=== PATIENT | female | born 1945 | race Hispanic/Latino ===

== ENCOUNTER 2017-11-18 05:50 | Emergency (ER) | payer MEDICARE ==
[~2017-11-18] VITALS: Ht 157.5 cm; Wt 85.7 kg
[~2017-11-18 05:50] MED LIST: ALLOPURINOL; ALLOPURINOL100 MG PO; BP; GLIPIZIDE5 MG PO; HYDROCHLOROTH12.5 MG PO; LOSARTAN POTAS100 MG PO; METFORMIN HCL500 MG PO; OMEPRAZOLE20 MG PO; PRAVACHOL40 MG PO; TRAMADOL HCL-A1 EAC1; Z.0.ASPIRIN CHEW81 M; Z.0.DIOVAN80 MG
[2017-11-18] MEDS ORDERED: ACETAMINOPHEN 325 MG TAB PO ONE (06:00)
[2017-11-18] MEDS ORDERED: HYDRALAZINE HCL 25 MG TAB PO ONE (06:00)
== END 2017-11-18 06:54 | disposition home or self-care (01) ==
LOC: ER 05:50
DX: I10 Essential (primary) hypertension (principal); R51 Headache; E11.9 Type 2 diabetes mellitus without complications; E78.5 Hyperlipidemia, unspecified; M10.9 Gout, unspecified
CPT/HCPCS: 99282

== ENCOUNTER 2020-05-10 12:05 | Emergency (ER) | payer MEDICARE ==
[~2020-05-10] VITALS: Ht 154.9 cm; Wt 89.4 kg
[2020-05-10] MEDS ORDERED: ASPIRIN 81 MG CHEW TAB PO ONE (13:15)
--- OUTSIDE RECORDS SUMMARY | 2020-05-10 13:37 | XMS REPORT | Continuity of Care Document ---
Author Author [employer] Organization [employer] Address Unknown Phone Unavailable Care Team Providers Care Animal Ride Attendant Name Role Phone [employer] Unavailable Un available Problems Problem Status Onset Date Classification Date Reported Comments Source Abnormal electrocardiogram Act mckay Problem Geno Fonseca Claudication Active Problem 05/09/2017 Geno Fonseca Shortness of breath Active Problem 05/09/2017 Geno Fonseca Venous insufficiency Active Problem 05/09/2017 Geno Fonseca Gastro-esophageal reflux disease without esophagitis Active Diagnosis 05/09/2017 Geno Fonseca Varicose veins of bilateral lower extrem ities with other complications Active Prob libia 05/09/2017 Geno Fonseca Obesity Active Diagnosis 05/09/2017 Geno Fonseca Dizziness Active Problem 05/09/2017 Geno Fonseca Status post ablation of incompetent vein using laser Active Problem 05/09/2017 Geno Fonseca DM w/o complication type II Ac tive Problem Geno Fonseca Pure hypercholesterolemia Acti ve Problem Geno Fonseca Coronary atherosclerosis Active Problem 05/09/2017 Geno Fonseca 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 Active Prob libia 05/09/2017 Geno Fonseca OSWALDO positive Active Problem 10/12/2018 Jann Wetzel Polyarthritis Active Problem 10/12/2018 Jann Wetzel CAD (coronary artery disease) Active Problem Geno Fonseca Obesity Active Problem 02/01/2015 Geno Fonseca Claudication Active Problem 02/01/2015 Geno Fonseca Exercise-induced shortness of breath Active Problem Geno Fonseca Benign hypertensive heart disease Active Problem Geno Fonseca Chest Pain Active Problem 02/01/2015 Geno Fonseca Hypercholesteremia Active Problem 02/01/2015 Geno Fonseca GERD (gastroesophageal reflux disease) Active Problem Geno Estesyenialeksandr Abnormal ECG Active Problem 02/01/2015 Geno Estesava Diabetes Active Problem 02/01/2015 Geno Estesyenialeksandr Dizziness Active Diagnosis 02/01/2015 Geno Estesyenialeksandr Medications Medication Details Route Status Patient Instructions Ordering Provider Order Date Source Linzess 1 capsule Orally Active 145 MCG [facility] Estes[facility] Allopurinol 1 tablet Orally Active 100 mg Orally Once a da y [facility] Catie Fonseca Omeprazole 1 capsule Orally Active 40 mg Orally Twice a da y [facility] Franklynaleksandr Atorvastatin Calcium 1 tablet Orally Active 10 mg Orally Once a day [facility] [place] Metoprolol Tartrate 1 tablet Orally Active 25 MG Orally Once a day [facility] [place] GlipiZIDE 1/2 half tablet Orally Active 5 MG Orally Once a day [facility] [place] Januvia 1 tablet Orally Active 25 MG Orally twice a da y (bid) [facility] [place] BusPIRone HCl 1/2 half tablet Orally Active 15 MG Orally twice a day (bid) [facility] Catie Estesaleksandr Losartan Potassium 1 tablet Orally Active 100 mg Orally Once a day [facility] GlipiZIDE 1 tablet Orally Active 5 MG Orally [facility] a day [facility] Vitamin D (Ergocalciferol) 1 c apsule Orally Active 02717 UNIT Orally once a week Nishi Wetzel Aspirin 1 tablet Orally Active 81 MG Orally [facility] a day [facility] Catie Estesaleksandr Omeprazole 1 capsule Orally Active 20 mg Orally Twice a da y [facility] Catie Fonseca Allergies, Adverse Reactions, Alerts Substance Category Reaction Severity Reaction type Status Date Reported Comments Source N.K.D.A. Adverse Reaction Info Not Available Adverse Reaction Active 09/20/2016 Geno Estesyenialeksandr Immunizations No Data Provided for This Section Results No Data Provided for This Section Pathology Reports No Data Provided for This Section Diagnostic Reports No Data Provided for This Section Consultation Notes No Data Provided for This Section Discharge Summaries No Data Provided for This Section History and Physicals No Data Provided for This Section Vital Signs Vital Sign Value Date Comments Source Weight 207 09/20/2016 Mohamed O Jeroudi Temperature Oral (F) 97.1 F 09/20/2016 Mohamed O Jeroudi Heart Rate 70 09/20/2016 Mohamed O Jeroudi Diastolic (mm Hg) 80 09/20/2016 Mohamed O Jeroudi Systolic (mm Hg) 130 09/20/2016 Mohamed O Jeroudi Weight 206 08/14/2016 Mohamed O Jeroudi Temperature Oral (F) 97.6 F 08/14/2016 Mohamed O Jeroudi Heart Rate 70 08/14/2016 Mohamed O Jeroudi Diastolic (mm Hg) 80 08/14/2016 Mohamed O Jeroudi Systolic (mm Hg) 130 08/14/2016 Mohamed O Jeroudi Weight 208 07/26/2016 Mohamed O Jeroudi Temperature Oral (F) 97.6 F 07/26/2016 Mohamed O Jeroudi Heart Rate 70 07/26/2016 Mohamed O Jeroudi Diastolic (mm Hg) 82 07/26/2016 Mohamed O Jeroudi Systolic (mm Hg) 128 07/26/2016 Mohamed O Jeroudi Weight 208 06/22/2016 Mohamed O Jeroudi Temperature Oral (F) 97.2 F 06/22/2016 Mohamed O Jeroudi Heart Rate 70 06/22/2016 Mohamed O Jeroudi Diastolic (mm Hg) 70 06/22/2016 Mohamed O Jeroudi Systolic (mm Hg) 132 06/22/2016 Mohamed O Jeroudi Weight 208 04/20/2016 Mohamed O Jeroudi Temperature Oral (F) 97.0 F 04/20/2016 Mohamed O Jeroudi Heart Rate 70 04/20/2016 Mohamed O Jeroudi Diastolic (mm Hg) 80 04/20/2016 Mohamed O Jeroudi Systolic (mm Hg) 128 04/20/2016 Mohamed O Jeroudi Weight 211 01/18/2016 Mohamed O Jeroudi Temperature Oral (F) 96.5 F 01/18/2016 Mohamed O Jeroudi Heart Rate 71 01/18/2016 Mohamed O Jeroudi Diastolic (mm Hg) 80 01/18/2016 Mohamed O Jeroudi Systolic (mm Hg) 132 01/18/2016 Mohamed O Jeroudi Weight 210 11/30/2014 Mohamed O Jeroudi Temperature Oral (F) 97.0 F 11/30/2014 Geno Fonseca Heart Rate 74 11/30/2014 Geno Fonseca Diastolic (mm Hg) 80 11/30/2014 Geno Fonseca Systolic (mm Hg) 130 11/30/2014 Geno Fonseca Encounters Location Location Details Encounter Type Encounter Number Reason For Visit Attending Provider ADM Date DC Date Status Source MD AMANUEL Rojas Unknown [id number] 12/01/19 15 11/30/2014 MD AMANUEL Cabral Unknown [id number] 12/08/19 15 12/07/2014 MD AMANUEL Cabral Unknown [id number] 12/08/19 15 12/07/2014 Geno Fonseca Procedures No Data Provided for This Section Assessment and Plan No Data Provided for This Section Plan of Care No Data Provided for This Section Social History Social History Date Source Social History ElementQualifiersDate Rep orted Smoking . Status Never Smoker December 21, 2014 Alcohol Use Yes. December 21, 2014 Alcohol Screening: . Did you have a drink containing alco hol in the past year?: Yes, How often did you have a drink containing alcohol in the past year?: Monthly or less (1 point), How many drinks did you have on a typical day when you were drinking in the past year?: 1 or 2 (0 points), How often did you have six or more drinks on one occasion in the past year?: Never (0 points), Points: 1 December 21, 2014 Marital Status: . December 21, 2014 Do you drink alcohol? Yes. December 21, 2014 Occupation: . House December 21, 2014 12/21/2014 Geno Fonseca Family History No Data Provided for This Section Advance Directives No Data Provided for This Section Functional Status No Data Provided for This Section
--- OUTSIDE RECORDS SUMMARY | 2020-05-10 13:37 | XMS REPORT | Continuity of Care Document ---
Author Author [facility] t Organization [facility] Address [address] [place] [address] Phone Unavailable Care Team Providers Care Corporate Legal Assistant Name Role Phone JOON SEARS, CINDI PCP SARA ANTONIO M.D. Attphys Unavailable Payers Payer Name Policy Type Policy Number Effective Date Expiration Date Mitzy boss [facility] Medicare Advantage [id number] 2012 00:00:00 [facility] Problems Condition Name Condition Details Condition Category Status Onset Date Resolution Date Last Treatment Date Treating Clinician Comments Source History of arthritis History of arthritis Problem HL7.CCDAR2 Resolved [facility] History of Depressive disorder History of Depressive disorde r Problem HL7.CCDAR2 Resolved [facility] History of diabetes mellitus History of diabetes mellitus Proble m HL7.CCDAR2 Resolved [facility] History of gastritis History of gastritis Problem HL7.CCDAR2 Resolved [facility] History of hypertension History of hypertension Problem HL7.CCDAR2 Res olved [facility] Chronic GERD Chronic GERD Problem HL7.CCDAR2 Active [facility] Abnormal electrocardiogram Abn ormal electrocardiogram Active Problem 05/09/2017 Geno Fonseca Problem Active 2017-05-09 02:45:01 [facility] Claudication Brooklynn dication Active Problem 05/09/2017 Mohamed O Franklynoudi Problem Active 2017-05-09 02:45:01 [facility] Shortness of breath Shor tness of breath Active Problem 05/09/2017 Mohbenitez Epsteindi Problem Active 2017-05-09 02:45:01 [facility] Venous insufficiency Veno us insufficiency Active Problem 05/09/2017 Mohbenitez Fonseca Problem Active 2017-05-09 02:45:01 [facility] Gastro-esophageal reflux disease without esophagitis Gastro-esophageal reflux disease without esophagitis Active Diagnosis 05/09/2017 Geno Fonseca Diagnosis Active 2017-05-09 02:45:0 1 [facility] Varicose veins of bilateral lower extremities with oth er complications Varicose veins of bilateral lower extremities with other complications Active Problem 05/09/2017 Geno Epsteindi Problem Active 2017-05-09 02:45:01 [facility] Obesity Obes ity Active Diagnosis 05/09/2017 Geno Estesoudi Diagnosis Active 2017-05-09 02:45:01 [facility] Dizziness Dizz iness Active Problem 05/09/2017 Mohbenitez Estesoudi Problem Active 2017-05-09 02:45:01 [facility] Status post ablation of incompetent vein using laser Status post ablation of incompetent vein using laser Active Problem 05/09/2017 Geno Fonseca Problem Active 2017-05-09 02:45:01 [facility] DM w/o complication type II DM w/o complication type II Active Problem 05/09/2017 Geno Fonseca Problem Active 2017-05-09 02:45:01 [facility] Pure hypercholesterolemia Pure hypercholesterolemia Active Problem 05/09/2017 Geno Fonseca Problem Active 26-04-30 02:45:01 [facility] Coronary atherosclerosis Aaron nary atherosclerosis Active Problem 05/09/2017 Geno Fonseca Problem Active 26-04-30 02:45:01 [facility] Benign hypertensive heart disease without congestive h eart failure Benign hypertensive heart disease without congestive heart failure Active Problem 05/09/2017 Geno Fonseca Problem Active 26-04-30 02:45:01 [facility] OSWALDO positive OSWALDO positive Active Problem 10/12/2018 Jann Wetzel Problem Active 2018-10-12 03:46:15 [facility] Polyarthritis Poly arthritis Active Problem 10/12/2018 Jann Wetzel Problem Active 2018-10-12 03:46:15 [facility] CAD (coronary artery disease) CAD (coronary artery disease) Active Problem 02/01/2015 Mohbenitez Estesoudi Problem Active 2015-02-01 02:48:35 [facility] Obesity Obes ity Active Problem 02/01/2015 Mohamed Catie Estesoudi Problem Active 2015-02-01 02:48:35 [facility] [place] Claudication Brooklynn dication Active Problem 02/01/2015 Mohamed Catie Estesoudi Problem Active 2015-02-01 02:48:35 [facility] Exercise-induced shortness of breath Exercise-induced shortness of breath Active Problem 02/01/2015 Geno Fonseca Problem Ac tive 2015-02-01 02:48:35 [place] Benign hypertensive heart disease Benign hypertensive heart disease Active Problem 02/01/2015 Geno Fonseca Problem Active 2015-02-01 02:48:35 Susana Estrada Chest Pain Ches t Pain Active Problem 02/01/2015 Geno Fonseca Problem Active 2015-02-01 02:48:35 [facility] Sean Hypercholesteremia Hype rcholesteremia Active Problem 02/01/2015 Geno Fonseca Problem Active 2015-02-01 02:48:35 Susana Estrada GERD (gastroesophageal reflux disease) GERD (gastroesophageal reflux disease) Active Problem 02/01/2015 Geno Fonseca Problem Active 2015-02-01 02:48:35 Susana Estrada Abnormal ECG Abno rmal ECG Active Problem 02/01/2015 Geno Fonseca Problem Active 2015-02-01 02:48:35 Susana Estrada Diabetes Diab etes Active Problem 02/01/2015 Geno Fonseca Problem Active 2015-02-01 02:48:35 [place] Le[place]ann Dizziness Dizz iness Active Diagnosis 02/01/2015 Geno Fonseca Diagnosis Active 2015-02-01 02:48:35 Susana Estrada Allergies, Adverse Reactions, Alerts Allergy Name Allergy Type Status Severity Reaction(s) Onset Date Inacti ve Date Treating Clinician Comments Source N.K.D.A. N.K.D.A. Active Info Not Available 2016-09-20 00:00:00 Susana Sean Family History Family Member Diagnosis Comments Start Date Stop Date Source Unknown Family Member Family history of cardiac disorder Family Histo ry [facility] Social History Social Habit Start Date Stop Date Quantity Comments Source Smoking 2014-12-21 00:00:00 2014-12-21 00:00:00 Susana Estrdaa Smoking Status Start Date Stop Date Source Never smoker [facility] Medications Ordered Medication Name Filled Medication Name Start Date Stop Da te Current Medication? Ordering Clinician Indication Dosage Frequency Signature (SIG) Comments Components Source Vitamin D (Ergocalciferol) 2018-10-12 03:46:15 Yes Derrick Singersaf 1 capsule [facility] [place] Linzess 2017-05-09 02:45:01 Yes Chiqui Epsteindi 1 c apsule [facility] Allopurinol 2017-05-09 02:45:01 Yes Chiqui Estesoudi 1 tablet [facility] Omeprazole 2017-05-09 02:45:01 Yes Chiqui Estesoudi 1 capsule [facility] Atorvastatin Calcium 2017-05-09 02:45:01 Yes Lesad Jeroudi 1 tablet [facility] Metoprolol Tartrate 2017-05-09 02:45:01 Yes Lesad Jeroudi 1 tablet [facility] GlipiZIDE 2017-05-09 02:45:01 Yes Chiqui Jeroudi 1 /2 half tablet [facility] Januvia 2017-05-09 02:45:01 Yes Chiqui Estesoudi 1 t ablet [facility] BusPIRone HCl 2017-05-09 02:45:01 Yes Chiqui Jeroudi 1/2 half tablet [facility] Losartan Potassium 2017-05-09 02:45:01 Yes Chiqui Estesoudi 1 tablet [facility] GlipiZIDE 2017-04-21 02:46:21 Yes Geno Estesoudi 1 tablet [facility] Aspirin 2015-02-01 02:48:35 Yes Mauriceamed Jeroudi 1 tablet [facility] Omeprazole 2015-02-01 02:48:35 Yes Geno Estesoudi 1 capsule [facility] Allopurinol 100 Mg Tablet Allopurinol 100 Mg Tablet Yes [address] [facility] Glipizide 5 Mg Tablet Glipizide 5 Mg Tablet Yes 5 Twice A Day [facility] Hydrochlorothiazide 12.5 Mg Tablet Hydrochlorothiazide 12.5 Mg Tablet Yes 12.5 Daily [facility] Losartan Potassium 100 Mg Tablet Losartan Potassium 100 Mg Tablet Yes 100 Daily [facility] Metformin Hcl 500 Mg Tablet Metformin Hcl 500 Mg Tablet Yes [address] [facility] Omeprazole 20 Mg Capsule. Omeprazole 20 Mg Capsule. Yes 20 Daily [facility] Pravastatin Sodium (Pravachol) 40 Mg Tablet Pravastati n Sodium (Pravachol) 40 Mg Tablet Yes [address] [facility] Januvia 50 MG Oral Tablet Januvia 50 MG Oral Tablet Yes R.N. [facility] Losartan Potassium TABS Losartan Potassium TABS Yes R.N. [facility] Atorvastatin Calcium TABS Atorvastatin Calcium TABS Yes R.N. [facility] Metoprolol-Hydrochlorothiazide TABS Metoprolol-Hydrochlorothiazide TA BS Yes [facility] Baclofen TABS Baclofen TABS Yes [facility] Omeprazole TBEC Omeprazole TBEC Yes [facility] BusPIRone HCl TABS BusPIRone HCl TABS Yes [facility] AmLODIPine Besylate TABS AmLODIPine Besylate TABS Yes [facility] GlipiZIDE TABS GlipiZIDE TABS Yes [facility] VESIcare TABS VESIcare TABS Yes [facility] Tylenol with Codeine #3 TABS Tylenol with Codeine #3 TABS Yes [facility] Allopurinol (Zyloprim) 100 Mg Tablet, Allopurinol (Zyloprim) 100 Mg Tablet, 2013-02-20 00:00:00 No [facility] Aspirin (Aspirin Chew) 81 Mg Chew, Aspirin (Aspirin Chew) 81 Mg Chew, 2013-02-20 00:00:00 [facility] Bp , Bp , 2013-02-20 00:00:00 [facility] Tramadol Hcl/Acetaminophen (Tramadol Hcl-Apap 37.5-325 Tab) 1 Each Tablet, Tramadol Hcl/Acetaminophen (Tramadol Hcl-Apap 37.5-325 Tab) 1 Each Tablet, 2013-02-20 00:00:00 [facility] Valsartan (Diovan) 80 Mg Tablet, Valsartan (Diovan) 80 Mg Tablet , 2013-02-20 00:00:00 [facility] Vital Signs Vital Name Observation Time Observation Value Comments Source BP Systolic 2018-04-26 09:02:00 146 mm[Hg] [facility] BP Diastolic 2018-04-26 09:02:00 81 mm[Hg] [facility] Height 2018-04-26 09:02:00 62 [in_us] [facility] Weight 2018-04-26 09:02:00 203.0625 [lb_av] [facility] Body Mass Index Calculated 2018-04-26 09:02:00 37.14 kg/m2 [facility] Heart Rate 2018-04-26 09:02:00 69 /min [facility] Weight 2016-09-20 19:00:00 [facility] [place] Temperature Oral (F) 2016-09-20 19:00:00 97.1 F [facility] Heart Rate 2016-09-20 19:00:00 [facility] Diastolic (mm Hg) 2016-09-20 19:00:00 [facility] [place] Systolic (mm Hg) 2016-09-20 19:00:00 [facility] [facility] Sean Weight 2016-08-14 19:30:00 [facility] Temperature Oral (F) 2016-08-14 19:30:00 97.6 F [facility] [place] Heart Rate 2016-08-14 19:30:00 [facility] Diastolic (mm Hg) 2016-08-14 19:30:00 Mem orial Sean Systolic (mm Hg) 2016-08-14 19:30:00 [place] rial Sean Weight 2016-07-26 16:30:00 [facility] [place] Temperature Oral (F) 2016-07-26 16:30:00 97.6 F [facility] [place] Heart Rate 2016-07-26 16:30:00 [facility] [place] Diastolic (mm Hg) 2016-07-26 16:30:00 Mem orial Sean Systolic (mm Hg) 2016-07-26 16:30:00 [place] [facility] [place] Weight 2016-06-22 18:30:00 [facility] Temperature Oral (F) 2016-06-22 18:30:00 97.2 F [facility] Heart Rate 2016-06-22 18:30:00 [facility] Diastolic (mm Hg) 2016-06-22 18:30:00 Mem [facility] [place] Systolic (mm Hg) 2016-06-22 18:30:00 [place] rial Sean Weight 2016-04-20 19:00:00 [facility] [place] Temperature Oral (F) 2016-04-20 19:00:00 97.0 F [facility] [place] Heart Rate 2016-04-20 19:00:00 [facility] [place] Diastolic (mm Hg) 2016-04-20 19:00:00 Mem [facility] [place] Systolic (mm Hg) 2016-04-20 19:00:00 [place] rial [place] Weight 2016-01-18 18:00:00 [facility] [place] Temperature Oral (F) 2016-01-18 18:00:00 96.5 F [facility] [place] Heart Rate 2016-01-18 18:00:00 [facility] [place] Diastolic (mm Hg) 2016-01-18 18:00:00 Mem orial Sean Systolic (mm Hg) 2016-01-18 18:00:00 [place] rial Sean Weight 2014-11-30 18:30:00 [facility] [place] Temperature Oral (F) 2014-11-30 18:30:00 97.0 F [facility] Heart Rate 2014-11-30 18:30:00 [facility] Diastolic (mm Hg) 2014-11-30 18:30:00 Mem orial Sean Systolic (mm Hg) 2014-11-30 18:30:00 [place] Sean Procedures This patient has no known procedures. Encounters Start Date/Time End Date/Time Encounter Type [facility] Encounter ID Source 2018-10-11 10:52:00 2018-10-11 10:52:00 Outpatient Seth Wetzel MD [place] [id number] Jann Wetzel MD 2018-04-26 08:30:00 2018-04-26 08:30:00 Appointment; SARA ANTONIO M.D. BYRD, MICHAEL, M.D. [facility] Otorhinolaryngology [place] [id number] [facility] 2017-11-18 05:50:00 2017-11-18 05:50:00 Registered Emergency Room [facility] [id number] [facility] 2016-09-20 14:00:00 2016-09-20 14:00:00 Outpatient Geno VITAL [id number] [employer] 2016-08-14 14:30:00 2016-08-14 14:30:00 Outpatient Geno Fonseca MD [place] [id number] [employer] 2016-07-26 11:30:00 2016-07-26 11:30:00 Outpatient Geno Fonseca MD [place] [id number] [employer] 2016-06-22 13:30:00 2016-06-22 13:30:00 Outpatient Geno Fonseca MD [place] [id number] [employer] 2016-04-20 14:00:00 2016-04-20 14:00:00 Outpatient Geno Fonseca MD [place] [id number] [employer] 2016-01-18 13:00:00 2016-01-18 13:00:00 Outpatient Geno Fonseca MD [place] [id number] [employer] 2014-12-07 14:26:00 2014-12-07 14:26:00 [place] [id number] [employer] 2014-11-30 13:30:00 2014-11-30 13:30:00 Outpatient Geno [place]sec[place] [id number] [employer] Results Test Description Test Time Test Comments Results Result Comments Source Tobacco Use Screening 2018-04-26 08:30:00 Test Item Completed (test code = Completed) DONE [facility]
[2020-05-10 13:51] LABS: BASOPHILS % 0.4 % (0.0-1.0); EOSINOPHILS # (AUTO) 0.2 (0.0-0.4); HEMATOCRIT 38.6 % (34.2-44.1); LYMPHOCYTES # (AUTO) 2.6 (1.0-3.2); LYMPHOCYTES % 32.3 % (18.0-39.1); MEAN CORPUSCULAR HEMOGLOBIN 28.5 pg (28-32); MEAN CORPUSCULAR HGB CONC 31.1 g/dL (31-35); MEAN CORPUSCULAR VOLUME 91.7 fL (81-99); MONOCYTES # (AUTO) 0.7 (0.2-0.8); MONOCYTES % 8.5 % (4.4-11.3); NEUTROPHILS # (AUTO) 4.5 (2.1-6.9); NEUTROPHILS % 56.6 % (38.7-80.0); PLATELET COUNT 179 x10e3/uL (140-360); RED BLOOD COUNT 4.21 x10e6/uL (3.6-5.1)
[2020-05-10 14:05] LABS: BILIRUBIN,URINE NEGATIVE (NEGATIVE); CLARITY,URINE CLEAR (CLEAR); COLOR,URINE YELLOW (YELLOW); KETONES,URINE NEGATIVE (NEGATIVE); LEUKOCYTE ESTERASE ,URINE NEGATIVE (NEGATIVE); NITRITE,URINE NEGATIVE (NEGATIVE); PROTEIN,URINE DIPSTICK TRACE (NEGATIVE); URINE UROBILINOGEN 0.2 mg/dL (0.2 - 1)
[2020-05-10 14:17] LABS: BACTERIA,URINE RARE /HPF; EPITHELIAL CELLS,URINE MODERATE /LPF
--- NOTE | 2020-05-10 14:36 | NUR ---
SPOKE WITH BARRY IN LAB REGARDING ETA OF STUDENT LOAN COUNSELOR TO REDRAW PT FOR GREEN (PER ER MANGER) AND BARRY KEEPS STATING "THERE IS ONLY ONE STUDENT LOAN COUNSELOR" HE THEN STATED SHE HAS OUTPT TESTING THEN WILL COME DO ER.
--- NOTE | 2020-05-10 15:44 | NUR ---
PT'S SON CALLED ER AND STATED PT TOLD HIM SHE WAS UPSET, "THAT WE HADN'T FED HER." MD/RN X 2 TO ROOM TO SPEAK WITH PT. PT STATES SHE DID STATE THAT TO HER SON, THEN PT TOLD MD SHE WAS NAUSEATED AND HAD PAIN AND DIDNT WANT TO EAT. EXPLAINED TO PT AGAIN OF PLAN OF CARE AND NPO STATUS D/T IMPORTANCE OF CT TEST THAT IS PENDING. PT STATES UNDERSTANDING OF ALL ABOVE INFORMATION
[2020-05-10 16:17] LABS: ALBUMIN 4.2 g/dL (3.5-5.0); ALBUMIN/GLOBULIN RATIO 1.2 (0.8-2.0); ANION GAP 18.4 mmol/L (8-16); CALCIUM 9.2 mg/dL (8.4-10.2); CREATINE KINASE MB 2.2 ng/mL (0-5.0); CREATININE, SERUM 1.34 mg/dL (0.57-1.11); POTASSIUM 4.4 mmol/L (3.5-5.1)
[2020-05-10] MEDS ORDERED: SODIUM CHLORIDE 0.9% 1000ML 1,000 ML IV STA (16:44)
--- NOTE | 2020-05-10 18:28 | Diagnostic Imaging Report ---
EXAM: CT Abdomen and Pelvis WITH contrast INDICATION: ABD PAIN COMPARISON: None. TECHNIQUE: Abdomen and pelvis were scanned utilizing a multidetector helical scanner from the lung base to the pubic symphysis after administration of IV contrast. Coronal and sagittal reformations were obtained. Dose modulation, iterative reconstruction, and/or weight based adjustment of the mA/kV was utilized to reduce the radiation dose to as low as reasonably achievable. Routine protocol was performed. Scan was performed when during portal venous phase. IV CONTRAST: 150 mL of Omnipaque 300 ORAL CONTRAST: Water COMPLICATIONS: None RADIATION DOSE: Total DLP: dlp mGy-cm Estimated effective dose: (DLP x 0.015 x size factor) mSv CTDIvol has been reviewed. It is below the limits set by the Radiation Protocol Committee (RPC). FINDINGS: LINES and TUBES: None. LOWER THORAX: There is bibasilar atelectasis. There are faint groundglass opacities noted in the lung bases could be inflammatory. HEPATOBILIARY: The liver is diffuse hypodense compared to the spleen, consistent with diffuse hepatic diffuse hepatic steatosis. No focal hepatic lesions. No biliary ductal dilation. GALLBLADDER: The gallbladder is not seen.. SPLEEN: No splenomegaly. No focal splenic lesion. PANCREAS: No focal masses or ductal dilatation. ADRENALS: No adrenal nodules KIDNEYS/URETERS: Kidneys enhance symmetrically. No hydronephrosis. There is a 1.2 x 1.5 x 1.1 cm hypoenhancing lesion in the superior pole of right kidney (series 2, image 22). There is a 1 mm nonobstructive calculus in upper pole of the left kidney (series 301, image 68) GI TRACT: There is mild wall thickening of the transverse colon, descending colon and sigmoid colon. There are diverticula within the colon without evidence of diverticulitis. PELVIC ORGANS/BLADDER: The bladder is unremarkable. LYMPH NODES: No lymphadenopathy. 0.7 cm portacaval nodes (series 2, image 22), nonspecific. VESSELS: No aortic aneurysm or dissection. PERITONEUM / RETROPERITONEUM: No free air or fluid. BONES: There are degenerative changes in the spine. SOFT TISSUES: Unremarkable. IMPRESSION: 1. Faint groundglass opacities in the lung bases are likely due to atypical/viral pneumonia. 2. Mild wall thickening of the transverse colon, descending colon and sigmoid colon likely infectious or inflammatory. 3. Hypoenhancing 1.5 cm lesion in the superior pole of right kidney is incompletely characterized on this exam. Recommend further evaluation with CT or MR renal mass protocol. 4. A 1 mm nonobstructive calculus in upper pole of the left kidney. Signed by: Vernon Be MD on 05/10/2020 6:25 PM
--- NOTE | 2020-05-10 18:29 | Emergency Department Note ---
History of Present Illnes History of Present Illness Chief Complaint: Abdominal Complaints History of Present Illness This is a 75 year old female ABDOMEN FEELS HOT AROUND UMBILICAL AREA, RADIATES UP TO EPIGASTRIC AREA. DENIES ANY N/V. DIARRHEA X 4. "I FEEL LIKE I HAVE GASTRITIS". Historian: Patient Arrival Mode: Car Additional Treatment PROFESSOR OF BIOCHEMISTRY: NONE Ply Bander Required: No Onset (how long ago): day(s) (1) Location: LOWER ABD Quality: DISCOMFORT Radiation: Reports non-radiation Severity: mild Timing of current episode: intermittent Chronicity: new Context: Denies recent illness Relieving factors: none Exacerbating factors: none Associated symptoms: Reports denies other symptoms Treatments prior to arrival: none Past Medical/Family History Physician Review I have reviewed the patient's past medical and family history. Any updates have been documented here. Past Medical History Recent Fever: No Clinical Suspicion of Infectio: No New/Unexplained Change in Ment: No Past Medical History: Hyperlipedemia Other Medical History: HIGH CHOLESTEROL, GOUT Other Surgery: C SECTION Social History Smoking Cessation: Never Smoker Counseling Performed: No Alcohol Use: None Any Illegal Drug Use: No Physically hurt or threatened: No Other Last Tetanus: UNKNOWN Any Pre-Existing Lines (PICC,: No Review of Systems Review of Systems Constitutional: Reports no symptoms EENTM: Reports no symptoms Cardiovascular: Reports no symptoms Respiratory: Reports no symptoms Gastrointestinal: Reports as per HPI Genitourinary: Reports no symptoms Musculoskeletal: Reports no symptoms Integumentary: Reports no symptoms Neurological: Reports no symptoms Psychological: Reports no symptoms Endocrine: Reports no symptoms Hematological/Lymphatic: Reports no symptoms Physical Exam Related Data Allergies: Coded Allergies: No Known Allergies (Unverified , 05/06/11) Triage Vital Signs Vital Signs Date Time Temp Pulse Resp B/P (MAP) Pulse Ox O2 Delivery O2 Flow Rate FiO2 05/10/20 13:07 97.9 77 18 180/84 97 Room Air Vital signs reviewed: Yes Physical Exam CONSTITUTIONAL Constitutional: Present well-developed, Present well-nourished, Present obese HENT HENT: Present normocephalic, Present atraumatic, Present oropharynx clear/moist, Present nose normal HENT L/R: Present left ext ear normal, Present right ext ear normal EYES Eyes: Reports PERRL, Reports conjunctivae normal NECK Neck: Present ROM normal PULMONARY Pulmonary: Present effort normal, Present breath sounds normal CARDIOVASCULAR Cardiovascular: Present regular rhythm, Present heart sounds normal, Present capillary refill normal, Present normal rate GASTROINTESTINAL Abdominal: Present soft, Present bowel sounds normal, Present tender (MILD SUPRAPUBIC AND LLQ WITHOUT R/G); Absent guarding, Absent rebound GENITOURINARY Genitourinary: Present exam deferred SKIN Skin: Present warm, Present dry MUSCULOSKELETAL Musculoskeletal: Present ROM normal NEUROLOGICAL Neurological: Present alert, Present oriented x 3, Present no gross motor or sensory deficits PSYCHOLOGICAL Psychological: Present mood/affect normal, Present judgement normal Results Laboratory Result Diagram: 05/10/20 1310 05/10/20 1534 Laboratory Laboratory Tests Test 05/10/20 15:34 05/10/20 13:10 Sodium Level 138 mmol/L (136-145) Potassium Level 4.4 mmol/L (3.5-5.1) Chloride Level 105 mmol/L (98-107) Carbon Dioxide Level 19 mmol/L (22-29) Anion Gap 18.4 mmol/L (8-16) Blood Urea Nitrogen 17 mg/dL (7-26) Creatinine 1.34 mg/dL (0.57-1.11) Estimat Glomerular Filtration Rate 39 ML/MIN (60-) BUN/Creatinine Ratio 13 (6-25) Glucose Level 111 mg/dL (74-118) Calcium Level 9.2 mg/dL (8.4-10.2) Total Bilirubin 0.6 mg/dL (0.2-1.2) Aspartate Amino Transf (AST/SGOT) 33 IU/L (5-34) Alanine Aminotransferase (ALT/SGPT) 27 IU/L (0-55) Alkaline Phosphatase 50 IU/L (40-150) Creatine Kinase 142 IU/L (29-168) Creatine Kinase MB 2.20 ng/mL (0-5.0) Troponin I 0.023 ng/mL (0-0.300) Total Protein 7.8 g/dL (6.5-8.1) Albumin 4.2 g/dL (3.5-5.0) Globulin 3.6 g/dL (2.3-3.5) Albumin/Globulin Ratio 1.2 (0.8-2.0) White Blood Count 8.02 x10e3/uL (4.8-10.8) Red Blood Count 4.21 x10e6/uL (3.6-5.1) Hemoglobin 12.0 g/dL (12.0-16.0) Hematocrit 38.6 % (34.2-44.1) Mean Corpuscular Volume 91.7 fL (81-99) Mean Corpuscular Hemoglobin 28.5 pg (28-32) Mean Corpuscular Hemoglobin Concent 31.1 g/dL (31-35) Red Cell Distribution Width 14.0 % (11.7-14.4) Platelet Count 179 x10e3/uL (140-360) Neutrophils (%) (Auto) 56.6 % (38.7-80.0) Lymphocytes (%) (Auto) 32.3 % (18.0-39.1) Monocytes (%) (Auto) 8.5 % (4.4-11.3) Eosinophils (%) (Auto) 2.0 % (0.0-6.0) Basophils (%) (Auto) 0.4 % (0.0-1.0) Neutrophils # (Auto) 4.5 (2.1-6.9) Lymphocytes # (Auto) 2.6 (1.0-3.2) Monocytes # (Auto) 0.7 (0.2-0.8) Eosinophils # (Auto) 0.2 (0.0-0.4) Basophils # (Auto) 0.0 (0.0-0.1) Absolute Immature Granulocyte (auto 0.02 x10e3/uL (0-0.1) Urine Color Yellow (YELLOW) Urine Clarity Clear (CLEAR) Urine pH 5.5 (5 - 7) Urine Specific [place] <=1.005 (1.010-1.025) Urine Protein Trace (NEGATIVE) Urine Glucose (UA) Negative (NEGATIVE) Urine Ketones Negative (NEGATIVE) Urine Blood Negative (NEGATIVE) Urine Nitrite Negative (NEGATIVE) Urine Bilirubin Negative (NEGATIVE) Urine Urobilinogen 0.2 mg/dL (0.2 - 1) Urine Leukocyte Esterase Negative (NEGATIVE) Urine RBC None /HPF (0-5) Urine WBC None /HPF (0-5) Urine Epithelial Cells Moderate /LPF (NONE) Urine Bacteria Rare /HPF (NONE) Lab results reviewed: Yes Imaging Imaging results reviewed: Yes Imaging Comments DR MARTINEZ TO F/U CT Procedures 12 Lead ECG Interpretation ECG Interpretation : ECG: ECG 1 Date: May 10, 2020 Time: 13:10 Rhythm: sinus rhythm Conduction: right bundle branch block (AND LAFB) ST segments normal: Yes T waves normal: Yes Other findings: LVH Clinical Impression: abnormal ECG Assessment & Plan Medical Decision Making MDM CBC, CHEM, UA/CX, CARDIACS, ECG, CT ABD/PELVIS - EVAL FOR UTI, KIDNEY STONE, DIVERTICULITIS, BOWEL OBSTRUCTION, NSTEMI Reassessment Reassessment CT NOTED. DC HOME, PUSH PO FLUIDS, ADVANCE TO BLAND DIABETIC DIET, ZOFRAN, BENTYL, F/U PCP AND GI and , SELF-QUARANTINE, PRONING, TYLENOL DIRECTED, GET TESTED FOR COVID. RTED PRN Assessment & Plan Final Impression: (1) Abdominal pain (2) Gastroenteritis (3) Renal mass (4) COVID-19 Depart Disposition: HOME, SELF-CARE Last Vital Signs Date Time Temp Pulse Resp B/P (MAP) Pulse Ox O2 Delivery O2 Flow Rate FiO2 05/10/20 15:47 67 16 96 Room Air 05/10/20 13:07 97.9 Home Meds Reported Medications Losartan Potassium (LOSARTAN POTASSIUM) 100 Mg Tablet, 100 MG PO DAILY 02/20/13 Allopurinol (ALLOPURINOL) 100 Mg Tablet, 100 MG PO BID 02/20/13 Omeprazole (OMEPRAZOLE) 20 Mg Capsule.dr, 20 MG PO DAILY 02/20/13 Hydrochlorothiazide (HYDROCHLOROTHIAZIDE) 12.5 Mg Tablet, 12.5 MG PO DAILY 02/20/13 Pravastatin Sodium (PRAVACHOL) 40 Mg Tablet, 40 MG PO DAILY 02/20/13 Metformin Hcl (METFORMIN HCL) 500 Mg Tablet, 500 MG PO BID 02/20/13 Glipizide (GLIPIZIDE) 5 Mg Tablet, 5 MG PO BID 02/20/13 Medications in the ED Aspirin 81 mg PRN ONCE PO ; Start 05/10/20 at 13:15; Stop 05/10/20 at 13:18; Status DC Sodium Chloride 1,000 ml @ 0 mls/hr Q0M STAT IV Last administered on 05/10/20at 17:06; Admin Dose 1,000 MLS/HR; Start 05/10/20 at 16:44; Stop 05/10/20 at 16:45; Status DC MEGAN RODRIGUEZ MD May 10, 2020 18:29
[2020-05-10] MEDS ORDERED: IOPAMIDOL 370 MG/ML 200 ML INFUS..BTL INJ ONE (18:34)
[2020-05-10] MEDS ORDERED: SODIUM CHLORIDE 0.9% 50ML 50 ML ONE (18:34)
== END 2020-05-10 18:56 | disposition home or self-care (01) ==
LOC: ER 12:15
DX: U07.1 COVID-19 (principal); K52.9 Noninfective gastroenteritis and colitis, unspecified; R10.33 Periumbilical pain; N28.89 Other specified disorders of kidney and ureter; E78.5 Hyperlipidemia, unspecified; E78.00 Pure hypercholesterolemia, unspecified; M10.9 Gout, unspecified
CPT/HCPCS: 36415; 74177; 80053; 81001; 82550; 82553; 84484; 85025; 87086; 93005; 99284; Q9967

== ENCOUNTER 2021-11-30 16:05 | Outpatient (RCR) | payer MEDICARE | END 2021-12-08 | LOC: PT 16:05 | PROVIDERS: ATTEND Neurological Surgery | DX: M48.062 Spinal stenosis, lumbar region with neurogenic claudication (principal) ==